=== PATIENT | male | born 1970 | race Caucasian/White ===

== ENCOUNTER 2019-04-05 04:21 | Emergency (ER) | payer SELFPAY ==
[~2019-04-05] VITALS: Ht 165.1 cm; Wt 99.8 kg
[2019-04-05 04:27] VITALS: Ht 165.1 cm; Wt 99.8 kg
[2019-04-05 06:17] VITALS: BP 145/90
== END 2019-04-05 06:17 | disposition home or self-care (01) ==
LOC: ED 04:21
DX: S69.81XA Other specified injuries of right wrist, hand and finger(s), initial encounter (principal); V43.52XA Car driver injured in collision with other type car in traffic accident, initial encounter; Y93.55 Activity, bike riding; Y92.413 State road as the place of occurrence of the external cause; Y99.8 Other external cause status
CPT/HCPCS: A4570